=== PATIENT | female | born 1995 | race Caucasian/White ===

== ENCOUNTER 2017-06-12 09:25 | Emergency (ER) | payer OTHER ==
[2017-06-12 10:12] VITALS: BP 119/65
--- NOTE | 2017-06-12 10:28 | UC ---
Complaint Female HPI - HPI Summary HPI Summary: patient has had a few days of dysuria that has led to some right flank pain. she alos thinks she has a 5-7 pound weight loss over the last 2 months that she states was not worked at. - History Of Current Complaint Chief Complaint: UCGU Stated Complaint: URINARY COMPLAINT Hx Obtained From: Patient Hx Last Menstrual Period: 05/28/17 ?: No Onset/Duration: Sudden Onset, Lasting Days Timing: Lasting Days Severity Initially: Moderate Severity Currently: Moderate Aggravating Factor(s): Urination Associated Signs And Symptoms: Positive: Back Pain - Allergies/Home Medications Allergies/Adverse Reactions: Allergies Allergy/AdvReac Type Severity Reaction Status Date / Time No Known Allergies Allergy Verified 06/12/17 10:02 PMH/Surg Hx/FS Hx/Imm Hx Previously Healthy: Yes - Surgical History Surgical History: None - Family History Known Family History: Negative: Cardiac Disease, Hypertension - Social History Alcohol Use: Rare Substance Use Type: None Smoking Status (MU): Never Smoked Tobacco - Immunization History Most Recent Influenza Vaccination: NONE 2015 Most Recent Tetanus Shot: UTD Review of Systems Constitutional: Negative Skin: Negative Eyes: Negative ENT: Negative Respiratory: Negative Cardiovascular: Negative Gastrointestinal: Negative Genitourinary: Dysuria, Hematuria, Frequency, Urgency Motor: Negative Neurovascular: Negative Musculoskeletal: Negative Neurological: Negative Psychological: Negative All Other Systems Reviewed And Are Negative: Yes Physical Exam Triage Information Reviewed: Yes Appearance: Well-Appearing, Well-Nourished, Pain Distress Vital Signs: Initial Vital Signs Temp 97.6 F 06/12/17 10:03 Pulse 69 06/12/17 10:03 Resp 16 06/12/17 10:03 BP 119/65 06/12/17 10:03 Pulse Ox 100 06/12/17 10:03 Vital Signs Reviewed: Yes Eye Exam: Normal ENT Exam: Normal Dental Exam: Normal Neck exam: Normal Respiratory Exam: Normal Cardiovascular Exam: Normal Abdomen Description: Positive: Nontender, No Organomegaly, Soft, CVA Tenderness (R) - neg, CVA Tenderness (L) - neg Bowel Sounds: Positive: Present Musculoskeletal Exam: Normal Neurological Exam: Normal Psychological Exam: Normal Skin Exam: Normal Complaint Female Dx - Course Course Of Treatment: hx obtained, exam performed ,meds reviewed, treated for UTI , recommend follow up with PCP for weight loss, no unusal pain, fatique, brusing noted - Differential Dx/Diagnosis Differential Diagnosis/HQI/PQRI: Sexually Transmitted Disease, Ureteral Stone, Urinary Tract Infection Provider Diagnoses: UTI Discharge - Discharge Plan Condition: Stable Disposition: HOME Patient Education Materials: Urinary Tract Infection in Women (ED) Additional Instructions: 1. take the medication as prescribed. 2. Increase fluid intake 3. Follow up with your medical provider for the weight loss
== END 2017-06-12 10:46 | disposition home or self-care (01) ==
LOC: UCCORT 09:25
DX: N39.0 Urinary tract infection, site not specified (principal)
CPT/HCPCS: 81003; 87077; 87086; 87186; 99202; G0463

== ENCOUNTER 2017-08-07 12:52 | Emergency (ER) | payer OTHER ==
[2017-08-07 14:04] VITALS: BP 117/59
--- NOTE | 2017-08-07 14:32 | UC ---
Complaint Female HPI - HPI Summary HPI Summary: 21 y/o female presents to the [facility] c/o frequency and burning pain on urination since this morning. Pt has not taking anything to alleviate symptoms. Pt states pain is 5/10. LMP: 07/12/2017 with regular menstrual cycles and she takes OCP. Pt denies fever, back pain, vaginal discharge, pelvic pain, SOB, chest pain, N/V/D. - History Of Current Complaint Chief Complaint: UCGU Stated Complaint: URINARY COMPLAINT Time Seen by Provider: 08/07/17 14:10 Hx Obtained From: Patient Hx Last Menstrual Period: 07/12/17 ?: No Onset/Duration: Gradual Onset, Lasting Hours - since this morning, Still Present Timing: Constant Severity Initially: Mild Severity Currently: Moderate Pain Intensity: 5 Pain Scale Used: 0-10 Numeric Character: Burning Aggravating Factor(s): Urination Alleviating Factor(s): Nothing Associated Signs And Symptoms: Positive: Negative. Negative: Fever, Back Pain, Vaginal Bleeding/Discharge, Vaginal Discharge, Genital Swelling, Genital Blisters - Risk Factors Ectopic Risk Factor: Negative Ovarian Torsion Risk Factor: Negative - Allergies/Home Medications Allergies/Adverse Reactions: Allergies Allergy/AdvReac Type Severity Reaction Status Date / Time No Known Allergies Allergy Verified 08/07/17 14:04 Home Medications: Home Medications Norgestimate-Eth Estradiol(NF) [Ortho Tri-Cyclen (NF)] 1 tab PO DAILY 08/07/17 [ History Confirmed 08/07/17] PMH/Surg Hx/FS Hx/Imm Hx Previously Healthy: Yes - Pt denies PMHX - Surgical History Surgical History: None - Family History Known Family History: Positive: None - Pt denies FMHX Negative: Cardiac Disease, Hypertension - Social History Occupation: Employed Full-time, Student Lives: With Family Alcohol Use: None Substance Use Type: None Smoking Status (MU): Never Smoked Tobacco - Immunization History Most Recent Influenza Vaccination: not 2017 Most Recent Tetanus Shot: UTD Review of Systems Constitutional: Negative Skin: Negative Eyes: Negative ENT: Negative Respiratory: Negative Cardiovascular: Negative Gastrointestinal: Negative Genitourinary: Dysuria, Frequency, Urgency Motor: Negative Neurovascular: Negative Musculoskeletal: Negative Neurological: Negative Psychological: Negative Is Patient Immunocompromised?: No All Other Systems Reviewed And Are Negative: Yes Physical Exam Triage Information Reviewed: Yes Appearance: Well-Appearing, No Pain Distress, Well-Nourished, Thin Vital Signs: Initial Vital Signs Temp 98 F 08/07/17 14:01 Pulse 64 08/07/17 14:01 Resp 14 08/07/17 14:01 BP 117/59 08/07/17 14:01 Pulse Ox 100 08/07/17 14:01 Vital Signs Reviewed: Yes Eye Exam: Normal Eyes: Positive: Conjunctiva Clear - PERRLA, EOMI ENT Exam: Normal ENT: Positive: Normal ENT inspection, Hearing grossly normal, Pharynx normal, TMs normal Neck exam: Normal Neck: Positive: Supple, Nontender, No Lymphadenopathy Respiratory Exam: Normal Respiratory: Positive: Chest non-tender, Lungs clear, Normal breath sounds Cardiovascular Exam: Normal Cardiovascular: Positive: RRR, No Murmur, Pulses Normal Abdominal Exam: Normal Abdomen Description: Positive: Nontender, No Organomegaly, Soft. Negative: CVA Tenderness (R), CVA Tenderness (L) Bowel Sounds: Positive: Present Musculoskeletal Exam: Normal Musculoskeletal: Positive: Strength Intact, ROM Intact, No Edema Neurological Exam: Normal Psychological Exam: Normal Skin Exam: Normal Complaint Female Dx - Course Course Of Treatment: 21 y/o female presents to the [facility] c/o frequency and burning pain on urination since this morning. Pt has not taking anything to alleviate symptoms. Pt states pain is 5/10. LMP: 07/12/2017 with regular menstrual cycles and she takes OCP. Pt denies fever, back pain, vaginal discharge, pelvic pain, SOB, chest pain, N/V/D. HX obtained. UA ordered, Result : 2+leukoesteraces, 1+blood. Pregnacy test negative. Pt denies Vaginal discahrge. Pt Rx Macrobid PO and Pyridum for dysuria. Pt. Advised to increase fluid intake. If symptoms do not improve to return to the urgent care or f/u with her PCP. Pt understood and agreed. Left the clinic ambulating. - Differential Dx/Diagnosis Differential Diagnosis/HQI/PQRI: Cervicitis, , Urinary Tract Infection , Other - dysuria Provider Diagnoses: 1- Urinary tract infection. 2- Dysuria Discharge - Discharge Plan Condition: Stable Disposition: HOME Prescriptions: Nitrofurantoin Monohyd Macro [Macrobid] 100 mg PO BID #10 cap Phenazopyridine TAB* [Pyridium 100 mg TAB*] 100 mg PO TID #6 tab Patient Education Materials: Urinary Tract Infection in Women (ED) Referrals: GEOVANNA Medrano [Primary Care Provider] - If Needed Additional Instructions: 1- Please take Macrobid 100mg PO x 7 days. Pyridium 100mg PO TID x 2 days to alleviate urinary symptoms. Increase increase fluid intake and cranberry juice. 2-If symptoms do not improve please return to the urgent care or f/u with your PCP.
== END 2017-08-07 14:42 | disposition home or self-care (01) ==
LOC: UCCORT 12:52
DX: N39.0 Urinary tract infection, site not specified (principal); Z32.02 Encounter for pregnancy test, result negative
CPT/HCPCS: 81003; 84702; 87086; 99212; G0463

== ENCOUNTER 2019-09-15 09:14 | Emergency (ER) | payer OTHER ==
[2019-09-15 10:39] VITALS: BP 107/63
--- NOTE | 2019-09-15 11:04 | UC ---
Throat Pain/Nasal Marcellus HPI - HPI Summary HPI Summary: Pt presents with c/o sinus congestion, and pressure with it worsening at night, X 4 days. Pt states she has been taking OTC tylenol sinus medication with some improvement of symptoms. Pt states she feels better today but is concerned that it may worsen again tonight. Denies fever, chills, ST, cough or ear pain. - History of Current Complaint Chief Complaint: UCRespiratory Stated Complaint: SINUS COMPLAINT Time Seen by Provider: 09/15/19 10:55 Hx Obtained From: Patient Hx Last Menstrual Period: 08/17/19 ?: No Onset/Duration: Gradual Onset, Lasting Days, Still Present Severity: Mild Pain Intensity: 4 Cough: None Associated Signs & Symptoms: Positive: Sinus Discomfort - Epiglottits Risk Factors Epiglottis Risk Factors: Worse w/Recumbent Position - Allergies/Home Medications Allergies/Adverse Reactions: Allergies Allergy/AdvReac Type Severity Reaction Status Date / Time No Known Allergies Allergy Verified 09/15/19 10:35 PMH/Surg Hx/FS Hx/Imm Hx Previously Healthy: Yes - Surgical History Surgical History: None - Family History Known Family History: Positive: None - Pt denies FMHX Negative: Cardiac Disease, Hypertension - Social History Occupation: Employed Full-time Lives: With Family Alcohol Use: Rare Substance Use Type: None Smoking Status (MU): Never Smoked Tobacco Have You Smoked in the Last Year: No - Immunization History Most Recent Influenza Vaccination: not 2017 Most Recent Tetanus Shot: UTD Vaccination Up to Date: Yes Review of Systems All Other Systems Reviewed And Are Negative: Yes Constitutional: Positive: Negative Skin: Positive: Negative Eyes: Positive: Negative ENT: Positive: Sinus Congestion, Sinus Pain/Tenderness Respiratory: Positive: Negative Cardiovascular: Positive: Negative Gastrointestinal: Positive: Negative Genitourinary: Positive: Negative Motor: Positive: Negative Neurovascular: Positive: Negative Musculoskeletal: Positive: Negative Neurological: Positive: Negative Psychological: Positive: Negative Is Patient Immunocompromised?: No Physical Exam Triage Information Reviewed: Yes Appearance: Well-Appearing Vital Signs: Initial Vital Signs Temp 97.9 F 09/15/19 10:36 Pulse 76 09/15/19 10:36 Resp 16 09/15/19 10:36 BP 107/63 09/15/19 10:36 Pulse Ox 100 09/15/19 10:36 Vital Signs Reviewed: Yes Eye Exam: Normal ENT: Positive: Sinus tenderness Dental Exam: Normal Neck exam: Normal Respiratory Exam: Normal Cardiovascular Exam: Normal Musculoskeletal Exam: Normal Neurological Exam: Normal Psychological Exam: Normal Skin Exam: Normal Throat Pain/Nasal Course/Dx - Differential Dx/Diagnosis Differential Diagnosis/HQI/PQRI: Sinusitis, URI Provider Diagnosis: Viral syndrome, Allergic rhinitis Discharge ED - Sign-Out/Discharge Documenting (check all that apply): Patient Departure All imaging exams completed and their final reports reviewed: No Studies - Discharge Plan Condition: Stable Disposition: HOME Prescriptions: Fexofenadine/Pseudoephedrine [Sylvia-D 24 Hour Tablet] 1 each PO DAILY #10 tab.er.24h Patient Education Materials: Allergic Rhinitis (ED), Viral Syndrome (ED) Referrals: Carolee Seth NP [Primary Care Provider] - If Needed - Billing Disposition and Condition Condition: STABLE Disposition: Home - Attestation Statements Provider Attestation: I was available for consult. This patient was seen by the ANITRA. The patient was not presented to , seen by or examined by ok -Aric Tamez MD
== END 2019-09-15 11:14 | disposition home or self-care (01) ==
LOC: UCCORT 09:14
DX: J30.9 Allergic rhinitis, unspecified (principal); B34.9 Viral infection, unspecified
CPT/HCPCS: 99212; G0463